=== PATIENT | male | born 1985 | race Caucasian/White ===

== ENCOUNTER → 2017-04-20 | Outpatient (REF) ==
[~2017-04-20] MED LIST: PRILOTC PO
== END ==
LOC: WSOH 15:39
DX: Z02.89 Encounter for other administrative examinations (principal)

== ENCOUNTER → 2017-05-18 | Outpatient (REF) | LOC: WSOH 10:06 | DX: Z02.89 Encounter for other administrative examinations (principal) ==

== ENCOUNTER 2017-12-30 19:12 | Emergency (ER) | payer OTHER ==
[~2017-12-30] VITALS: Ht 172.7 cm; Wt 102.6 kg
[~2017-12-30 19:12] MED LIST changes: -BUSPAR10 MG PO; -LEXAPRO 10MG10 MG PO
[2017-12-30 19:18] VITALS: BP 108/59; PULSE 74; TEMP 98.7
[2017-12-30] MEDS ORDERED: BUSPAR10 MG PO (19:41)
[2017-12-30] MEDS ORDERED: LEXAPRO 10MG10 MG PO (19:41)
[2017-12-30 20:44] LABS: HIV 1/2 Antibodies Non-Reactive; HIV-1p24 Antigen Non-Reactive
[2017-12-31 14:29] LABS: HEPATITIS B SURFACE ANTIBODY 6.5 (()); HEPATITIS B SURFACE ANTIGEN Negative (()); HEPATITIS C VIRUS ANTIBODY Negative (())
== END 2017-12-30 20:18 | disposition home or self-care (01) ==
LOC: COL.ER 19:12
PROVIDERS: Nurse Practitioner
DX: T75.89XA Other specified effects of external causes, initial encounter (principal); F32.9 Major depressive disorder, single episode, unspecified; F17.210 Nicotine dependence, cigarettes, uncomplicated

== ENCOUNTER → 2017-12-30 | Outpatient (REF) ==
[~2017-12-30] MED LIST changes: +BUSPAR10 MG PO; +LEXAPRO 10MG10 MG PO
== END ==
LOC: COL.EMP 19:07 → COL.ER 19:11
DX: Z77.21 Contact with and (suspected) exposure to potentially hazardous body fluids (principal)